=== PATIENT | female | born 1975 | race Asian ===

== ENCOUNTER 2021-10-11 08:00 | Outpatient (CLI) | payer BC | END 2021-10-11 21:23 | disposition home or self-care (01) | LOC: NM 08:00 | PROVIDERS: ATTEND Nurse Practitioner Primary Care | DX: R07.9 Chest pain, unspecified (principal); Z12.31 Encounter for screening mammogram for malignant neoplasm of breast | CPT/HCPCS: A9500 ==

== ENCOUNTER 2022-06-27 09:54 | Outpatient (CLI) | payer BC | END 2022-06-27 18:51 | disposition home or self-care (01) | LOC: US 09:54 | PROVIDERS: ATTEND Family Medicine | DX: R22.0 Localized swelling, mass and lump, head (principal); R22.1 Localized swelling, mass and lump, neck ==

== ENCOUNTER 2022-07-24 08:36 | Outpatient (CLI) | payer BC | END 2022-07-24 19:49 | disposition home or self-care (01) | LOC: CT 08:36 | PROVIDERS: ATTEND Nurse Practitioner Primary Care | DX: D17.0 Benign lipomatous neoplasm of skin and subcutaneous tissue of head, face and neck (principal) ==

== ENCOUNTER 2022-10-24 19:56 | Emergency (ER) | payer BC ==
[~2022-10-24] VITALS: Ht 162.6 cm; Wt 94.8 kg
[2022-10-24 20:05] VITALS: BP 164/92; TEMP 98.2
== END 2022-10-24 22:04 | disposition home or self-care (01) ==
LOC: ED 19:56
DX: M79.18 Myalgia, other site (principal)
CPT/HCPCS: 96372; 99283; J1885; J2270; J2360; J2405